=== PATIENT | female | born 1985 | race Caucasian/White ===

== ENCOUNTER 2022-01-15 09:10 | Observation (INO) | payer OTHER, SELFPAY ==
[2022-01-15] MEDS ORDERED: Iopamidol 370 76% 100 ML VIAL ONE (09:40)
[2022-01-15 10:10] LABS: #Eosinphils 0.1 10x3/uL (0.0-0.5); #Monocytes 0.5 10x3/uL (0.0-1.1); #Neutrophils 5.1 10x3/uL (1.5-8.4); %Basophils 0.4 % (0.0-2.0); %Eosinophils 1.1 % (0.0-6.0); %Lymphocytes 23.8 % (18.0-47.0); %Monocytes 6.5 % (0.0-10.0); %Neutrophils 67.9 % (40.0-75.0); Hemoglobin 12.8 g/dL (12.0-15.5); Mean Corpuscular HGB CONC 34.1 g/dL (32.0-36.0); Mean Corpuscular Hemoglobin 32.2 pg (27.0-33.0); Mean Corpuscular Volume 94.2 fl (81.6-98.3); Mean Platelet Volume 10.1 fl (7.4-10.4); Platelet Count 177 10x3/uL (150-450); RBC Distribution Width 11.7 % (11.5-14.5); Red Blood Cell (RBC) Count 3.98 10x6/uL (3.90-5.03); White Blood Cell (WBC) Count 7.5 10x3/uL (3.5-10.5)
[2022-01-15 10:28] LABS: ALT (SGPT) 15 U/L (8-55); AST (SGOT) 18 U/L (5-34); Albumin 4.7 g/dL (3.5-5.0); Alkaline Phosphatase 37 U/L (40-110); Anion Gap 12 mmol/L (10-20); BUN (Urea Nitrogen) 11 mg/dL (7.0-18.7); Bilirubin, Total 0.6 mg/dL (0.2-1.2); Calc. Creatinine Clearance 0 mL/min (70-130); Calcium 9.6 mg/dL (7.8-10.44); Carbon Dioxide 25 mmol/L (22-29); Chloride 104 mmol/L (98-107); Globulin 2.8 g/dL (2.4-3.5); Glucose 89 mg/dL (70-105); Protein, Total 7.5 g/dL (6.0-8.3); Sodium 137 mmol/L (136-145)
[2022-01-15] MEDS ORDERED: Aspirin Chewable 81 MG TAB ONE (11:50)
[2022-01-15] MEDS ORDERED: Acetaminophen 325 MG TAB PO PRN (13:33)
[2022-01-15] MEDS ORDERED: Acetaminophen 650 MG Suppository PR PRN (13:33)
[2022-01-16 06:39] LABS: #Basophils 0.1 10x3/uL (0.0-0.2); #Eosinphils 0.1 10x3/uL (0.0-0.5); #Monocytes 0.6 10x3/uL (0.0-1.1); #Neutrophils 5.9 10x3/uL (1.5-8.4); %Basophils 0.6 % (0.0-2.0); %Eosinophils 1.5 % (0.0-6.0); %Lymphocytes 24.7 % (18.0-47.0); %Monocytes 7.1 % (0.0-10.0); %Neutrophils 65.7 % (40.0-75.0); Hemoglobin 12.3 g/dL (12.0-15.5); Mean Corpuscular HGB CONC 34.7 g/dL (32.0-36.0); Mean Corpuscular Hemoglobin 32.3 pg (27.0-33.0); Mean Corpuscular Volume 92.9 fl (81.6-98.3); Mean Platelet Volume 10.1 fl (7.4-10.4); Platelet Count 175 10x3/uL (150-450); RBC Distribution Width 11.8 % (11.5-14.5); Red Blood Cell (RBC) Count 3.81 10x6/uL (3.90-5.03); White Blood Cell (WBC) Count 8.9 10x3/uL (3.5-10.5)
[2022-01-16 06:48] LABS: Anion Gap 17 mmol/L (10-20); BUN (Urea Nitrogen) 13 mg/dL (7.0-18.7); Calc. Creatinine Clearance 117 mL/min (70-130); Calcium 9.4 mg/dL (7.8-10.44); Carbon Dioxide 19 mmol/L (22-29); Cardiac Risk 2.3 (Less than 4.5); Chloride 107 mmol/L (98-107); Cholesterol 158 mg/dl (< 200 Desired); Glucose 94 mg/dL (70-105); HDL Cholesterol 68 mg/dL (>60 Neg Risk); LDL Cholesterol, Calculated 80 mg/dL; Potassium 4.1 mmol/L (3.5-5.1); Sodium 139 mmol/L (136-145); Triglycerides 52 mg/dL (Less than 150)
[2022-01-16] MEDS ORDERED: Aspirin 81 mg Enteric Coated Tablet PO SCH (09:00)
[2022-01-16 09:18] VITALS: BP 108/59; TEMP 98.3
[2022-01-16 12:42] LABS: Hemoglobin A1c 4.9 % (4.0-6.0)
[2022-01-16 15:37] VITALS: BMI 24.9
== END 2022-01-16 10:00 | disposition home or self-care (01) ==
LOC: CSHERS 09:10 → CSHTELE 12:29
PROVIDERS: ADMIT Family Medicine; ATTEND Family Medicine
DX: O99.351 Diseases of the nervous system complicating pregnancy, first trimester (principal); G45.9 Transient cerebral ischemic attack, unspecified; Z3A.09 9 weeks gestation of pregnancy
CPT/HCPCS: 70496; 70498; 70551; 80048; 80053; 80061; 83036; 84443; 84484; 85025; 93005; 93306; 93880; G0378; Q9967